=== PATIENT | male | born 1980 | race African-American/Black ===

== ENCOUNTER 2018-02-19 10:04 | Inpatient (IN) | payer OTHER ==
[2018-02-19 10:25] VITALS: BMI 25.1
--- NOTE | 2018-02-19 11:08 | HP ---
CIWA Score - CIWA Score Nausea/Vomitin-No Nausea/No Vomiting Muscle Tremors: 4-Moderate,w/Arms Extend Anxiety: 5 Paroxysmal Sweats: 1-Minimal Palms Moist Orientation: 1-Uncertain about Date Tacttile Disturbances: 0-None Auditory Disturbances: 0-None Visual Disturbances: 2-Mild Sensitivity Headache: 0-None Present Admission ROS [facility] - HPI Chief Complaint: patient here requesting detox from etoh use , reports 1/2 gallon of vodka/day since age 28 , w/d seizures x 3 , most recently 1 yr ago , + tremors if not drinking , starts drinking upon awakening , + blackouts, + falls , most recently + hit head in the past not recently , denies recent injuries to self , does not drive . previous detox 1 mo ago at [facility] pricilla 0.236 utox + CORINNA , + BZO cocaine : occasional use adderall : street use " a few times " benzo : klonopin ( street use ) 2 mg 2 x/day denies other illicits tobacco 1/2 ppd , requesting nrt w/ patch denies allergies pmhx : denies pshx : denies psych : depression , took meds latest 6 mo ago for zoloft , remeron Allergies/Adverse Reactions: Allergies Allergy/AdvReac Type Severity Reaction Status Date / Time No Known Allergies Allergy Verified 02/19/18 10:39 - Ebola screening Have you traveled outside of the country in the last 21 days: No Have you had contact with anyone from an Ebola affected area: No Have you been sick,other than usual withdrawal symptoms: No Do you have a fever: No - Review of Systems Constitutional: See HPI, Malaise, Night Sweats EENT: reports: No Symptoms Reported, Other (glasses) Respiratory: reports: No Symptoms reported Cardiac: reports: No Symptoms Reported GI: reports: No Symptoms Reported : reports: No Symptoms Reported Musculoskeletal: reports: No Symptoms Reported Integumentary: reports: No Symptoms Reported Neuro: reports: See HPI, Tremors Endocrine: reports: No Symptoms Reported Hematology: reports: No Symptoms Reported Psychiatric: reports: Judgement Intact, Orientated x3, Depressed (h/o depression denies SI / HI), other Other Systems: Reviewed and Negative Patient History - Patient Medical History Hx Anemia: No Hx Asthma: No Hx Chronic Obstructive Pulmonary Disease (COPD): No Hx Cancer: No Hx Cardiac Disorders: No Hx Congestive Heart Failure: No Hx Hypertension: No Hx Hypercholesterolemia: No Hx Pacemaker: No HX Cerebrovascular Accident: No Hx Seizures: Yes (etoh related last 1 yr ago.) Hx Dementia: No Hx Diabetes: No Hx Gastrointestinal Disorders: No Hx Liver Disease: No Hx Genitourinary Disorders: No Hx Sexually Transmitted Disorders: No Hx Renal Disease (ESRD): No Hx Thyroid Disease: No Hx Human Immunodeficiency Virus (HIV): No (neg 2014) Hx Hepatitis C: No Hx Depression: Yes Hx Suicide Attempt: No Hx Schizophrenia: No - Patient Surgical History Past Surgical History: No - PPD History Previous Implant?: Yes Documented Results: Negative w/o proof Implanted On Prior [facility] Admission?: Yes Date: 04/14/15 - Smoking Cessation Smoking history: Current every day smoker Have you smoked in the past 12 months: Yes Aproximately how many cigarettes per day: 10 Hx Chewing Tobacco Use: No Initiated information on smoking cessation: No - Substances Abused Alcohol Route: Oral Frequency: Daily Amount used: 1/2 gallon vodka Age of first use: 13 Date of Last Use: 02/19/18 Benzodiazepine (Klonopin) Route: Oral Frequency: 1-2 times per week Amount used: 2mg Age of first use: 37 Date of Last Use: 02/16/18 Family Disease History - Family Disease History Family History: Denies Admission Physical Exam [facility] - Vital Signs Vital Signs: Vital Signs - 24 hr 02/19/18 10:19 Temperature 96.4 F L Pulse Rate 100 H Respiratory 20 Rate Blood Pressure 139/89 - Physical General Appearance: Yes: No Apparent Distress, Nourished, Appropriately Dressed , Moderate Distress, Alcohol on Breath, Tremorous, Anxious HEENTM: Yes: Within Normal Limits, EOMI, Hearing grossly Normal, Normal ENT Inspection, Normocephalic, Normal Voice, CHANA, Pharynx Normal Respiratory: Yes: Chest Non-Tender, Lungs Clear, Normal Breath Sounds, Decreased Breath Sounds, No Respiratory Distress, No Accessory Muscle Use Neck: Yes: Within Normal Limits, No masses,lesions,Nodules, Trachea in good position Cardiology: Yes: Regular Rhythm, Regular Rate, Tachycardia Abdominal: Yes: Within Normal Limits, Normal Bowel Sounds, Non Tender, Flat, Soft Back: Yes: Within Normal Limits, Normal Inspection Musculoskeletal: Yes: Within Normal Limits, full range of Motion, Gait Steady, Pelvis Stable Extremities: Yes: Normal Capillary Refill, Normal Inspection, Normal Range of Motion, Non-Tender, Tremors Neurological: Yes: Alert, Motor Strength 5/5, Normal Mood/Affect, Normal Response, Finger to Nose (difficulty following instructions 2/2 intoxication), Depressed Affect Integumentary: Yes: Within Normal Limits, Normal Color, Dry, Warm, Other ( tattoos) Lymphatic: Yes: Within Normal Limits BHS Breath Alcohol Content Breath Alcohol Content: 0.236 Urine Drug Screen - Results Drug Screen Negative: No Urine Drug Screen Results: CORINNA-Cocaine, BZO-Benzodiazepines
[2018-02-19] MEDS ORDERED: ACETAMINOPHEN 325 MG TABLET (FP) PO PRN (11:15)
[2018-02-19] MEDS ORDERED: MAGNESIUM HYDROX 2400MG/30ML ORAL SUSPENSION 30 ML CUP PO PRN (11:15)
[2018-02-19] MEDS ORDERED: IBUPROFEN 400 MG TABLET (FP) PO PRN (11:15)
[2018-02-19] MEDS ORDERED: MAG HYDROX/AL HYDROX/SIMETH 30 ML UNIT-DOSE CUP PO PRN (11:15)
[2018-02-19] MEDS ORDERED: MAGNESIUM CITRATE 300 ML BOTTLE PO PRN (11:15)
--- NOTE | 2018-02-19 13:59 | EKG ---
Test Reason : Blood Pressure : / mmHG Vent. Rate : 088 BPM Atrial Rate : 088 BPM P-R Int : 164 ms QRS Dur : 078 ms QT Int : 364 ms P-R-T Axes : 047 006 -11 degrees QTc Int : 440 ms NORMAL SINUS RHYTHM NONSPECIFIC T WAVE ABNORMALITY ABNORMAL ECG NO PREVIOUS ECGS AVAILABLE Confirmed by NATALI SEWELL MD ([id number]) on 02/19/2018 1:58:33 PM Referred By: Confirmed By:NATALI SEWELL MD
[2018-02-19] MEDS ORDERED: diazePAM 5 MG TABLET PO ONE (14:10)
--- NOTE | 2018-02-19 14:50 | CONSULT ---
[facility] Psychiatric Consult - Data Date of interview: 02/19/18 Admission source: [facility] Identifying data: Patient is a 38 year old single male, without children, unemployed (denies receiving financial assistance), and is currently homeless. This is one of multiple admissions for patient. Pt. admitted to for alcohol dependence. Substance Abuse History: Smoking Cessation. Smoking history: Current every day smoker. Have you smoked in the past 12 months: Yes. Aproximately how many cigarettes per day: 10. Hx Chewing Tobacco Use: No. Initiated information on smoking cessation: No. - Substances Abused. Alcohol. Route: Oral. Frequency: Daily. Amount used: 1/2 gallon vodka. Age of first use: 13. Date of Last Use: 02/19/18. Benzodiazepine (Klonopin). Route: Oral. Frequency: 1-2 times per week. Amount used: 2mg. Age of first use: 37. Date of Last Use : 02/16/18 Medical History: Seizures (r/t alcohol withdrawal one year ago) Psychiatric History: Patient denies h/o psychiatric hospitalization but as per Dr. Nicolas's note on 04/13/15 patient reported one psychiatric admission on 11/2014 at [facility] which resulted in a diagnosis of bipolar disorder. During his admission in detox in 2014 patient was prescribed Zoloft 200mg + Zyprexa 15mg qhs + Depakote 750mg qhs. Mr. Leonard reports taking zoloft 200mg + Buspar (unknown dose) + Mirtzapine 30mg qhs approximately 6 months ago but stopped taking medication after discontining treatment. Mr. Leonard most recently saw a psychiatrist 3 months ago who prescribed him latuda 40mg. Patient states the medication was effective but again discontinued treatment. Patient denies h/o suicide attempt. Physical/Sexual Abuse/Trauma History: denies. Mental Status Exam - Mental Status Exam Alert and Oriented to: Time, Place, Person Cognitive Function: Good Patient Appearance: Well Groomed Mood: Sad, Withdrawn Affect: Mood Congruent Patient Behavior: Fatigued, Guarded, Cooperative Speech Pattern: Appropriate Voice Loudness: Moderately Soft/Quiet Thought Process: Intact, Goal Oriented Thought Disorder: Not Present Hallucinations: Denies Suicidal Ideation: Denies Homicidal Ideation: Denies Insight/Judgement: Poor Sleep: Poorly Appetite: Fair Muscle strength/Tone: Normal Gait/Station: Normal Psychiatric Findings - Problem List ([place] 1, 2,3) (1) Substance-induced sleep disorder Current Visit: Yes Status: Acute (2) Substance induced mood disorder Current Visit: Yes Status: Acute (3) Mood disorder Current Visit: Yes Status: Chronic (4) Sedative hypnotic or anxiolytic dependence Current Visit: Yes Status: Acute (5) Alcohol dependence Current Visit: Yes Status: Acute Qualifiers: Substance use status: in withdrawal (6) Nicotine dependence Current Visit: Yes Status: Chronic Qualifiers: Nicotine product type: cigarettes - Initial Treatment Plan Initial Treatment Plan: Psychoeducation provided. Detoxification in progress. Will start patient on Latuda 20mg on 02/20/18 +Mirtzapine 15mg qhs tonight (02/19). Benefits and side effects discussed. Verbal consent given.
[2018-02-19 17:34] LABS: URINE APPEARANCE CLEAR; URINE BILIRUBIN NEGATIVE (<2.0 mg/dL); URINE COLOR STRAW; URINE GLUCOSE (UA) NEGATIVE (NEGATIVE); URINE KETONE NEGATIVE (NEGATIVE); URINE LEUK ESTERASE NEGATIVE (NEGATIVE); URINE NITRITE NEGATIVE (NEGATIVE); URINE PROTEIN NEGATIVE (NEGATIVE); URINE UROBILINOGEN NEGATIVE mg/dL (0.2-1.0)
[2018-02-19] MEDS: diazePAM 5 MG TABLET PO SCH ×2 (18:03→23:03)
[2018-02-19] MEDS ORDERED: MELATONIN 5 MG TABLETS PO PRN (22:00)
[2018-02-19] MEDS: MIRTAZAPINE 15 MG TABLET (FP) PO SCH (23:03)
[2018-02-19] MEDS: THIAMINE HCL 100 MG TABLET (FP) PO SCH (23:04)
[2018-02-20] MEDS: diazePAM 5 MG TABLET PO SCH ×3 (06:47→17:42)
[2018-02-20 10:20] LABS: HEMATOCRIT 41.3 % (35.4-49); HEMOGLOBIN 13.8 GM/dL (11.7-16.9); MCH 35.1 pg (25.7-33.7); MCHC 33.4 g/dl (32.0-35.9); MEAN CELL VOLUME 105.2 fl (80-96); MEAN PLT VOLUME 8.3 fl (7.5-11.1); PLATELET COUNT 165 K/MM3 (134-434); RBC 3.92 M/mm3 (4.00-5.60); RDW 13.9 % (11.9-15.9)
[2018-02-20] MEDS: NICOTINE 7 MG/24 HOURS TOPICAL PATCH TD SCH (11:13)
[2018-02-20] MEDS: PRENATAL VITAMINS W/ FOLIC ACID TABLET (FP) PO SCH (11:13)
[2018-02-20 12:37] LABS: ALBUMIN 3.7 g/dl (3.4-5.0); ALK PHOS 54 U/L (45-117); ANION GAP 10 MMOL/L (8-16); BILIRUBIN,TOTAL 0.2 mg/dL (0.2-1); BLOOD UREA NITROGEN 12 mg/dL (7-18); CALCIUM 8.4 mg/dL (8.5-10.1); CHLORIDE 109 mmol/L (98-107); CO2 25 mmol/L (21-32); GLUCOSE,RANDOM 134 mg/dL (74-106); POTASSIUM 3.6 mmol/L (3.5-5.1); SGOT/AST 31 U/L (15-37); SGPT/ALT 34 U/L (13-61); SODIUM 144 mmol/L (136-145); TOT PROT 7.6 g/dl (6.4-8.2)
--- NOTE | 2018-02-20 13:56 | PN ---
[facility] CIWA - CIWA Score Nausea/Vomitin-Mild Nausea/No Vomiting Muscle Tremors: 4-Moderate,w/Arms Extend Anxiety: 4-Mod. Anxious/Guarded Agitation: 4-Moderately Restless Paroxysmal Sweats: 1-Minimal Palms Moist Orientation: 0-Oriented Tacttile Disturbances: 0-None Auditory Disturbances: 0-None Visual Disturbances: 0-None Headache: 1-Very Mild CIWA-Ar Total Score: 15 BHS Progress Note (SOAP) Subjective: tremor sweat restlessness trouble sleep at night Objective: 02/20/18 14:01 Vital Signs Temperature 97.0 F L 02/20/18 13:36 Pulse Rate 53 L 02/20/18 13:36 Respiratory Rate 18 02/20/18 13:36 Blood Pressure 130/71 02/20/18 13:36 O2 Sat by Pulse Oximetry (%) Laboratory Last Values WBC 5.0 K/mm3 (4.0-10.0) 02/20/18 06:00 RBC 3.92 M/mm3 (4.00-5.60) L 02/20/18 06:00 Hgb 13.8 GM/dL (11.7-16.9) 02/20/18 06:00 Hct 41.3 % (35.4-49) 02/20/18 06:00 MCV 105.2 fl (80-96) H 02/20/18 06:00 MCH 35.1 pg (25.7-33.7) H 02/20/18 06:00 MCHC 33.4 g/dl (32.0-35.9) 02/20/18 06:00 RDW 13.9 % (11.9-15.9) 02/20/18 06:00 Plt Count 165 K/MM3 (134-434) 02/20/18 06:00 MPV 8.3 fl (7.5-11.1) D 02/20/18 06:00 Sodium 144 mmol/L (136-145) 02/20/18 06:00 Potassium 3.6 mmol/L (3.5-5.1) 02/20/18 06:00 Chloride 109 mmol/L (98-107) H 02/20/18 06:00 Carbon Dioxide 25 mmol/L (21-32) 02/20/18 06:00 Anion Gap 10 MMOL/L (8-16) 02/20/18 06:00 BUN 12 mg/dL (7-18) 02/20/18 06:00 Creatinine 1.0 mg/dL (0.55-1.3) 02/20/18 06:00 Creat Clearance w eGFR > 60 (>60) 02/20/18 06:00 Random Glucose 134 mg/dL (74-106) H 02/20/18 06:00 Calcium 8.4 mg/dL (8.5-10.1) L 02/20/18 06:00 Total Bilirubin 0.2 mg/dL (0.2-1) 02/20/18 06:00 AST 31 U/L (15-37) 02/20/18 06:00 ALT 34 U/L (13-61) 02/20/18 06:00 Alkaline Phosphatase 54 U/L (45-117) 02/20/18 06:00 Total Protein 7.6 g/dl (6.4-8.2) 02/20/18 06:00 Albumin 3.7 g/dl (3.4-5.0) 02/20/18 06:00 Urine Color Straw 02/19/18 16:12 Urine Appearance Clear 02/19/18 16:12 Urine pH 5.0 (5.0-8.0) 02/19/18 16:12 Ur Specific [place] 1.006 (1.001-1.035) 02/19/18 16:12 Urine Protein Negative (NEGATIVE) 02/19/18 16:12 Urine Glucose (UA) Negative (NEGATIVE) 02/19/18 16:12 Urine Ketones Negative (NEGATIVE) 02/19/18 16:12 Urine Blood Negative (NEGATIVE) 02/19/18 16:12 Urine Nitrite Negative (NEGATIVE) 02/19/18 16:12 Urine Bilirubin Negative (<2.0 mg/dL) 02/19/18 16:12 Urine Urobilinogen Negative mg/dL (0.2-1.0) 02/19/18 16:12 Ur Leukocyte Esterase Negative (NEGATIVE) 02/19/18 16:12 RPR Titer Nonreactive (NONREACTIVE) 02/20/18 06:00 lab noted Assessment: 02/20/18 14:03 withdrawal sx Plan: continue detox
[2018-02-20] MEDS: LURASIDONE HCL 20 MG TABLET PO SCH (17:45)
--- NOTE | 2018-02-20 18:02 | PN ---
[facility] CIWA - CIWA Score Nausea/Vomitin-No Nausea/No Vomiting Muscle Tremors: None Anxiety: 2 Agitation: 2 Paroxysmal Sweats: No Perspiration Orientation: 0-Oriented Tacttile Disturbances: 0-None Auditory Disturbances: 0-None Visual Disturbances: 0-None Headache: 0-None Present (for 02/19/18) CIWA-Ar Total Score: 4
[2018-02-20] MEDS: diazePAM 5 MG TABLET PO PRN (22:24)
[2018-02-20] MEDS: MIRTAZAPINE 15 MG TABLET (FP) PO SCH (22:24)
[2018-02-20] MEDS: THIAMINE HCL 100 MG TABLET (FP) PO SCH (22:24)
[2018-02-21] MEDS: diazePAM 5 MG TABLET PO SCH ×4 (02:14→22:27)
[2018-02-21] MEDS: NICOTINE 7 MG/24 HOURS TOPICAL PATCH TD SCH (10:30)
[2018-02-21] MEDS: PRENATAL VITAMINS W/ FOLIC ACID TABLET (FP) PO SCH (10:30)
--- NOTE | 2018-02-21 11:27 | PN ---
[facility] Progress Note Note: PATIENT PRESENTS WITH MILD ANXIETY. DENIES H/A, CHILLS, N/V/D AND TREMORS. HERE FOR DETOX FROM ETOH. Laboratory Tests 02/19/18 02/20/18 02/20/18 16:12 06:00 06:00 WBC 5.0 RBC 3.92 L Hgb 13.8 Hct 41.3 MCV 105.2 H MCH 35.1 H MCHC 33.4 RDW 13.9 Plt Count 165 MPV 8.3 D Sodium 144 Potassium 3.6 Chloride 109 H Carbon Dioxide 25 Anion Gap 10 BUN 12 Creatinine 1.0 Creat Clearance w eGFR > 60 Random Glucose 134 H Calcium 8.4 L Total Bilirubin 0.2 AST 31 ALT 34 Alkaline Phosphatase 54 Total Protein 7.6 Albumin 3.7 Urine Color Straw Urine Appearance Clear Urine pH 5.0 Ur Specific [place] 1.006 Urine Protein Negative Urine Glucose (UA) Negative Urine Ketones Negative Urine Blood Negative Urine Nitrite Negative Urine Bilirubin Negative Urine Urobilinogen Negative Ur Leukocyte Esterase Negative RPR Titer 02/20/18 06:00 WBC RBC Hgb Hct MCV MCH MCHC RDW Plt Count MPV Sodium Potassium Chloride Carbon Dioxide Anion Gap BUN Creatinine Creat Clearance w eGFR Random Glucose Calcium Total Bilirubin AST ALT Alkaline Phosphatase Total Protein Albumin Urine Color Urine Appearance Urine pH Ur Specific [place] Urine Protein Urine Glucose (UA) Urine Ketones Urine Blood Urine Nitrite Urine Bilirubin Urine Urobilinogen Ur Leukocyte Esterase RPR Titer Nonreactive Vital Signs Temperature 97.9 F 02/21/18 09:17 Pulse Rate 103 H 02/21/18 09:17 Respiratory Rate 18 02/21/18 09:17 Blood Pressure 138/92 02/21/18 09:17 O2 Sat by Pulse Oximetry (%) PE: ALERT AND ORIENTED SKIN WARM AND DRY CAR S1S2 RESP CTA BL A/P: WITHDRAWAL SYNDROME CONTINUE DETOX PER PROTOCOL ENCOURAGED ORAL FLUIDS
[2018-02-21] MEDS: LURASIDONE HCL 20 MG TABLET PO SCH (17:49)
[2018-02-21] MEDS ORDERED: LURASIDONE HCL 20 MG TABLET PO SCH (18:00)
[2018-02-21] MEDS: THIAMINE HCL 100 MG TABLET (FP) PO SCH (22:27)
[2018-02-21] MEDS: MIRTAZAPINE 15 MG TABLET (FP) PO SCH (22:27)
[2018-02-22] MEDS: diazePAM 5 MG TABLET PO PRN (05:11)
[2018-02-22 06:22] VITALS: TEMP 97.7
[2018-02-22] MEDS ORDERED: diazePAM 5 MG TABLET PO SCH (10:00)
[2018-02-22 10:07] VITALS: BP 132/74; PULSE 79
--- NOTE | 2018-02-22 11:06 | DS ---
[facility] Detox Discharge Summary Admission Date: 02/19/18 Discharge Date: 02/22/18 - History Present History: Alcohol Dependence, Sedative Dependence Pertinent Past History: HLD, Depression - Physical Exam Results Vital Signs: Vital Signs Temperature 97.7 F 02/22/18 08:30 Pulse Rate 79 02/22/18 08:30 Respiratory Rate 18 02/22/18 08:30 Blood Pressure 132/74 02/22/18 08:30 O2 Sat by Pulse Oximetry (%) Pertinent Admission Physical Exam Findings: Withdrawal sx Laboratory Last Values WBC 5.0 K/mm3 (4.0-10.0) 02/20/18 06:00 RBC 3.92 M/mm3 (4.00-5.60) L 02/20/18 06:00 Hgb 13.8 GM/dL (11.7-16.9) 02/20/18 06:00 Hct 41.3 % (35.4-49) 02/20/18 06:00 MCV 105.2 fl (80-96) H 02/20/18 06:00 MCH 35.1 pg (25.7-33.7) H 02/20/18 06:00 MCHC 33.4 g/dl (32.0-35.9) 02/20/18 06:00 RDW 13.9 % (11.9-15.9) 02/20/18 06:00 Plt Count 165 K/MM3 (134-434) 02/20/18 06:00 MPV 8.3 fl (7.5-11.1) D 02/20/18 06:00 Sodium 144 mmol/L (136-145) 02/20/18 06:00 Potassium 3.6 mmol/L (3.5-5.1) 02/20/18 06:00 Chloride 109 mmol/L (98-107) H 02/20/18 06:00 Carbon Dioxide 25 mmol/L (21-32) 02/20/18 06:00 Anion Gap 10 MMOL/L (8-16) 02/20/18 06:00 BUN 12 mg/dL (7-18) 02/20/18 06:00 Creatinine 1.0 mg/dL (0.55-1.3) 02/20/18 06:00 Creat Clearance w eGFR > 60 (>60) 02/20/18 06:00 Random Glucose 134 mg/dL (74-106) H 02/20/18 06:00 Calcium 8.4 mg/dL (8.5-10.1) L 02/20/18 06:00 Total Bilirubin 0.2 mg/dL (0.2-1) 02/20/18 06:00 AST 31 U/L (15-37) 02/20/18 06:00 ALT 34 U/L (13-61) 02/20/18 06:00 Alkaline Phosphatase 54 U/L (45-117) 02/20/18 06:00 Total Protein 7.6 g/dl (6.4-8.2) 02/20/18 06:00 Albumin 3.7 g/dl (3.4-5.0) 02/20/18 06:00 Urine Color Straw 02/19/18 16:12 Urine Appearance Clear 02/19/18 16:12 Urine pH 5.0 (5.0-8.0) 02/19/18 16:12 Ur Specific [place] 1.006 (1.001-1.035) 02/19/18 16:12 Urine Protein Negative (NEGATIVE) 02/19/18 16:12 Urine Glucose (UA) Negative (NEGATIVE) 02/19/18 16:12 Urine Ketones Negative (NEGATIVE) 02/19/18 16:12 Urine Blood Negative (NEGATIVE) 02/19/18 16:12 Urine Nitrite Negative (NEGATIVE) 02/19/18 16:12 Urine Bilirubin Negative (<2.0 mg/dL) 02/19/18 16:12 Urine Urobilinogen Negative mg/dL (0.2-1.0) 02/19/18 16:12 Ur Leukocyte Esterase Negative (NEGATIVE) 02/19/18 16:12 RPR Titer Nonreactive (NONREACTIVE) 02/20/18 06:00 Labs noted - Treatment Hospital Course: Detox Protocol Followed, Detoxed Safely, Responded well, Discharged Condition Good - Medication Discharge Medications: Ambulatory Orders Sertraline HCl [Zoloft] 200 mg PO DAILY 04/12/15 Atorvastatin Ca [Lipitor] 40 mg PO HS 02/19/18 Mirtazapine [Remeron -] 30 mg PO HS 02/19/18 - Diagnosis (1) Alcohol dependence with withdrawal Current Visit: Yes Status: Acute Qualifiers: Complication of substance-induced condition: uncomplicated Qualified Code(s ): F10.230 - Alcohol dependence with withdrawal, uncomplicated (2) Sedative hypnotic or anxiolytic dependence Current Visit: Yes Status: Acute (3) Substance induced mood disorder Current Visit: Yes Status: Acute (4) Nicotine dependence Current Visit: Yes Status: Chronic Qualifiers: Nicotine product type: cigarettes Substance use status: uncomplicated Qualified Code(s): F17.210 - Nicotine dependence, cigarettes, uncomplicated (5) HLD (hyperlipidemia) Current Visit: Yes Status: Acute - AMA Did Patient Leave Against Medical Advice: No
== END 2018-02-22 09:52 | disposition home or self-care (01) | DRG 774 ==
LOC: YASAS 10:04 → Y6N 12:35
PROC: HZ2ZZZZ Detoxification Services for Substance Abuse Treatment (ICD-10-PCS; principal; 2018-02-19)
DX: F10.230 Alcohol dependence with withdrawal, uncomplicated (principal); F13.230 Sedative, hypnotic or anxiolytic dependence with withdrawal, uncomplicated; F14.90 Cocaine use, unspecified, uncomplicated; F17.210 Nicotine dependence, cigarettes, uncomplicated; F19.24 Other psychoactive substance dependence with psychoactive substance-induced mood disorder; F19.282 Other psychoactive substance dependence with psychoactive substance-induced sleep disorder; F39 Unspecified mood [affective] disorder; F31.9 Bipolar disorder, unspecified; F32.9 Major depressive disorder, single episode, unspecified; Z86.69 Personal history of other diseases of the nervous system and sense organs
CPT/HCPCS: 36415; 80053; 81003; 85027; 86593; 93005; 93010

== ENCOUNTER 2020-07-19 08:43 | Inpatient (IN) | payer OTHER ==
[2020-07-19 09:27] VITALS: BMI 28.7
[2020-07-19] MEDS ORDERED: MAGNESIUM HYDROX 2400MG/30ML ORAL SUSPENSION 30 ML CUP PO PRN (10:06)
[2020-07-19] MEDS ORDERED: MAGNESIUM CITRATE 300 ML BOTTLE PO PRN (10:06)
[2020-07-19] MEDS ORDERED: BISMUTH SUBSALICYLATE 262 MG/15 ML BTL PO PRN (10:06)
[2020-07-19] MEDS ORDERED: MENTHOL/PHENOL 1 EACH UD MM PRN (10:06)
[2020-07-19] MEDS ORDERED: MAG HYDROX/AL HYDROX/SIMETH 30 ML UNIT-DOSE CUP PO PRN (10:06)
[2020-07-19] MEDS ORDERED: METHOCARBAMOL 500 MG TABLET PO PRN (10:06)
[2020-07-19] MEDS ORDERED: ONDANSETRON *ODT* 4 MG TABLET SL PRN (10:06)
[2020-07-19] MEDS ORDERED: diazePAM 5 MG TABLET PO PRN (10:06)
[2020-07-19] MEDS ORDERED: ACETAMINOPHEN 325 MG TABLET (FP) PO PRN ×2 (10:06)
[2020-07-19] MEDS ORDERED: IBUPROFEN 400 MG TABLET (FP) PO PRN (10:06)
[2020-07-19] MEDS ORDERED: NICOTINE POLACRILEX 2 MG GUM BUC PRN (10:06)
[2020-07-19] MEDS: NICOTINE 14 MG/24 HOURS TOPICAL PATCH TD SCH (11:26)
[2020-07-19] MEDS: diazePAM 5 MG TABLET PO SCH ×3 (11:27→22:45)
[2020-07-19 13:52] LABS: HEMATOCRIT 40.9 % (35.4-49); HEMOGLOBIN 14.3 GM/dL (11.7-16.9); MCH 34.6 pg (25.7-33.7); MEAN CELL VOLUME 98.9 fl (80-96); MEAN PLT VOLUME 8.9 fl (7.5-11.1); PLATELET COUNT 187 K/MM3 (134-434); RBC 4.13 M/mm3 (4.00-5.60); RDW 13.7 % (11.9-15.9); WHITE BLOOD COUNT 9.3 K/mm3 (4.0-10.0)
[2020-07-19 14:24] LABS: POTASSIUM 3.3 mmol/L (3.5-5.1)
[2020-07-19 14:31] LABS: ALBUMIN 3.9 g/dl (3.4-5.0)
[2020-07-19 14:33] LABS: BILIRUBIN,TOTAL 0.5 mg/dL (0.2-1); CALCIUM 8.7 mg/dL (8.5-10.1)
[2020-07-19 14:34] LABS: CREATININE 0.9 mg/dL (0.55-1.3)
[2020-07-19] MEDS: hydrOXYzine PAMOATE 25 MG CAPSULE (FP) PO SCH ×3 (15:01→22:44)
[2020-07-19] MEDS ORDERED: MELATONIN 5 MG TABLETS PO SCH (22:00)
[2020-07-19] MEDS: THIAMINE HCL 100 MG TABLET (FP) PO SCH (22:44)
[2020-07-19] MEDS: ATORVASTATIN CA 40 MG TABLET (FP) PO SCH (22:44)
[2020-07-20] MEDS: diazePAM 5 MG TABLET PO SCH ×4 (06:19→23:09)
[2020-07-20] MEDS: hydrOXYzine PAMOATE 25 MG CAPSULE (FP) PO SCH ×5 (06:19→23:07)
[2020-07-20] MEDS: SERTRALINE HCL 50 MG TABLET (FP) PO SCH (10:55)
[2020-07-20] MEDS: PRENATAL VITAMINS W/ FOLIC ACID TABLET (FP) PO SCH (10:58)
[2020-07-20] MEDS: NICOTINE 14 MG/24 HOURS TOPICAL PATCH TD SCH (10:58)
[2020-07-20] MEDS ORDERED: POTASSIUM CHLORIDE ORAL LIQUID 20 MEQ/15 ML PO ONE (18:09)
[2020-07-20] MEDS: POTASSIUM CHLORIDE ORAL LIQUID 20 MEQ/15 ML PO SCH (23:07)
[2020-07-20] MEDS: THIAMINE HCL 100 MG TABLET (FP) PO SCH (23:07)
[2020-07-20] MEDS: ATORVASTATIN CA 40 MG TABLET (FP) PO SCH (23:09)
[2020-07-21] MEDS: hydrOXYzine PAMOATE 25 MG CAPSULE (FP) PO SCH ×5 (05:24→22:12)
[2020-07-21] MEDS: diazePAM 5 MG TABLET PO SCH ×3 (05:24→22:11)
[2020-07-21 09:51] LABS: POTASSIUM 4.1 mmol/L (3.5-5.1)
[2020-07-21] MEDS: PRENATAL VITAMINS W/ FOLIC ACID TABLET (FP) PO SCH (10:14)
[2020-07-21] MEDS: SERTRALINE HCL 50 MG TABLET (FP) PO SCH (10:14)
[2020-07-21] MEDS: NICOTINE 14 MG/24 HOURS TOPICAL PATCH TD SCH (10:15)
[2020-07-21 10:45] LABS: BLOOD UREA NITROGEN 9.6 mg/dL (7-18)
[2020-07-21 10:48] LABS: CALCIUM 9.5 mg/dL (8.5-10.1)
[2020-07-21] MEDS: POTASSIUM CHLORIDE ORAL LIQUID 20 MEQ/15 ML PO SCH ×2 (13:08→22:11)
[2020-07-21] MEDS: ATORVASTATIN CA 40 MG TABLET (FP) PO SCH (22:11)
[2020-07-21] MEDS: THIAMINE HCL 100 MG TABLET (FP) PO SCH (22:11)
[2020-07-21] MEDS: MELATONIN 5 MG TABLETS PO PRN (22:12)
[2020-07-22] MEDS: hydrOXYzine PAMOATE 25 MG CAPSULE (FP) PO SCH ×5 (05:15→21:56)
[2020-07-22] MEDS: diazePAM 5 MG TABLET PO SCH ×2 (05:16→17:43)
[2020-07-22] MEDS: SERTRALINE HCL 50 MG TABLET (FP) PO SCH (10:08)
[2020-07-22] MEDS: NICOTINE 14 MG/24 HOURS TOPICAL PATCH TD SCH (10:08)
[2020-07-22] MEDS: PRENATAL VITAMINS W/ FOLIC ACID TABLET (FP) PO SCH (10:08)
[2020-07-22] MEDS: ATORVASTATIN CA 40 MG TABLET (FP) PO SCH (21:56)
[2020-07-22] MEDS: MELATONIN 5 MG TABLETS PO PRN (21:56)
[2020-07-22] MEDS: THIAMINE HCL 100 MG TABLET (FP) PO SCH (21:56)
[2020-07-23] MEDS: hydrOXYzine PAMOATE 25 MG CAPSULE (FP) PO SCH (05:13)
[2020-07-23] MEDS ORDERED: diazePAM 5 MG TABLET PO ONE (06:00)
[2020-07-23 09:24] VITALS: BP 140/95; PULSE 88; TEMP 97
== END 2020-07-23 09:53 | disposition home or self-care (01) | DRG 774 ==
LOC: YASAS 08:43 → Y6N 10:42
PROVIDERS: ADMIT Allergy & Immunology; ATTEND Allergy & Immunology
PROC: HZ2ZZZZ Detoxification Services for Substance Abuse Treatment (ICD-10-PCS; principal; 2020-07-19)
DX: F10.230 Alcohol dependence with withdrawal, uncomplicated (principal); F14.20 Cocaine dependence, uncomplicated; F17.210 Nicotine dependence, cigarettes, uncomplicated; F39 Unspecified mood [affective] disorder; F19.282 Other psychoactive substance dependence with psychoactive substance-induced sleep disorder; F19.24 Other psychoactive substance dependence with psychoactive substance-induced mood disorder; R56.9 Unspecified convulsions; E78.5 Hyperlipidemia, unspecified; E78.00 Pure hypercholesterolemia, unspecified
CPT/HCPCS: 36415; 80048; 80053; 82947; 82962; 83036; 85027; 86780; C9803; U0003

== ENCOUNTER 2021-06-07 08:56 | Inpatient (IN) | payer OTHER ==
[2021-06-07 09:20] VITALS: BMI 23.1
[2021-06-07] MEDS ORDERED: MENTHOL/PHENOL 1 EACH UD MM PRN (09:31)
[2021-06-07] MEDS ORDERED: ONDANSETRON *ODT* 4 MG TABLET SL PRN (09:31)
[2021-06-07] MEDS ORDERED: MAG HYDROX/AL HYDROX/SIMETH 30 ML UNIT-DOSE CUP PO PRN (09:31)
[2021-06-07] MEDS ORDERED: IBUPROFEN 400 MG TABLET (FP) PO PRN (09:31)
[2021-06-07] MEDS ORDERED: MAGNESIUM HYDROX 2400MG/30ML ORAL SUSPENSION 30 ML CUP PO PRN (09:31)
[2021-06-07] MEDS ORDERED: ACETAMINOPHEN 325 MG TABLET (FP) PO PRN ×2 (09:31)
[2021-06-07] MEDS ORDERED: BISMUTH SUBSALICYLATE 524 MG/30 ML PO PRN (09:31)
[2021-06-07] MEDS ORDERED: MAGNESIUM CITRATE 300 ML BOTTLE PO PRN (09:31)
[2021-06-07] MEDS ORDERED: hydrOXYzine PAMOATE 25 MG CAPSULE (FP) PO ONE (11:41)
[2021-06-07] MEDS: hydrOXYzine PAMOATE 25 MG CAPSULE (FP) PO SCH ×4 (11:43→22:20)
[2021-06-07] MEDS: PRENATAL VITAMINS W/ FOLIC ACID TABLET (FP) PO SCH (11:44)
[2021-06-07] MEDS: diazePAM 5 MG TABLET PO SCH ×3 (11:46→22:20)
[2021-06-07] MEDS: NICOTINE 7 MG/24 HOURS TOPICAL PATCH TD SCH (12:32)
[2021-06-07 14:55] LABS: HEMATOCRIT 44.3 % (35.4-49); HEMOGLOBIN 14.6 GM/dL (11.7-16.9); MCH 34.6 pg (25.7-33.7); MCHC 32.9 g/dl (32.0-35.9); MEAN PLT VOLUME 8.5 fl (7.5-11.1); PLATELET COUNT 138 10^3/uL (134-434); RBC 4.22 M/mm3 (4.00-5.60); WHITE BLOOD COUNT 4.7 K/mm3 (4.0-10.0)
[2021-06-07 15:04] LABS: CALCIUM 8.8 mg/dL (8.5-10.1)
[2021-06-07 15:05] LABS: ALBUMIN 3.7 g/dl (3.4-5.0); BLOOD UREA NITROGEN 6.5 mg/dL (7-18)
[2021-06-07 15:08] LABS: CREATININE 0.8 mg/dL (0.55-1.3)
[2021-06-07 15:10] LABS: BILIRUBIN,TOTAL 0.6 mg/dL (0.2-1); TOT PROT 7.8 g/dl (6.4-8.2)
[2021-06-07] MEDS: MELATONIN 5 MG TABLETS PO SCH (22:20)
[2021-06-07] MEDS: ATORVASTATIN CA 40 MG TABLET (FP) PO SCH (22:20)
[2021-06-07] MEDS: THIAMINE HCL 100 MG TABLET (FP) PO SCH (22:20)
[2021-06-08] MEDS: diazePAM 5 MG TABLET PO SCH ×4 (05:53→22:21)
[2021-06-08] MEDS: hydrOXYzine PAMOATE 25 MG CAPSULE (FP) PO SCH ×5 (05:54→22:20)
[2021-06-08] MEDS ORDERED: POTASSIUM CHLORIDE ORAL LIQUID 20 MEQ/15 ML PO ONE ×2 (10:00→14:30)
[2021-06-08] MEDS: METHOCARBAMOL 500 MG TABLET PO PRN (10:17)
[2021-06-08] MEDS: PRENATAL VITAMINS W/ FOLIC ACID TABLET (FP) PO SCH (10:17)
[2021-06-08] MEDS: amLODIPine BESYLATE 5 MG TABLET (FP) PO SCH (10:17)
[2021-06-08] MEDS: NICOTINE 7 MG/24 HOURS TOPICAL PATCH TD SCH (10:19)
[2021-06-08] MEDS: ATORVASTATIN CA 40 MG TABLET (FP) PO SCH (22:20)
[2021-06-08] MEDS: MELATONIN 5 MG TABLETS PO SCH (22:20)
[2021-06-08] MEDS: THIAMINE HCL 100 MG TABLET (FP) PO SCH (22:20)
[2021-06-09] MEDS: diazePAM 5 MG TABLET PO SCH ×3 (05:48→22:20)
[2021-06-09] MEDS: hydrOXYzine PAMOATE 25 MG CAPSULE (FP) PO SCH ×5 (05:48→22:20)
[2021-06-09] MEDS: METHOCARBAMOL 500 MG TABLET PO PRN (10:19)
[2021-06-09] MEDS: diazePAM 5 MG TABLET PO PRN (10:19)
[2021-06-09] MEDS: amLODIPine BESYLATE 5 MG TABLET (FP) PO SCH (10:21)
[2021-06-09] MEDS: NICOTINE 7 MG/24 HOURS TOPICAL PATCH TD SCH (10:21)
[2021-06-09] MEDS: PRENATAL VITAMINS W/ FOLIC ACID TABLET (FP) PO SCH (10:21)
[2021-06-09] MEDS: ATORVASTATIN CA 40 MG TABLET (FP) PO SCH (22:20)
[2021-06-09] MEDS: THIAMINE HCL 100 MG TABLET (FP) PO SCH (22:20)
[2021-06-09] MEDS: MELATONIN 5 MG TABLETS PO SCH (22:21)
[2021-06-09] MEDS: NICOTINE 10 MG CARTRIDGE (INHALER) IH PRN (22:35)
[2021-06-10] MEDS: hydrOXYzine PAMOATE 25 MG CAPSULE (FP) PO SCH ×5 (05:58→22:24)
[2021-06-10] MEDS: diazePAM 5 MG TABLET PO SCH ×2 (05:58→18:42)
[2021-06-10] MEDS: PRENATAL VITAMINS W/ FOLIC ACID TABLET (FP) PO SCH (10:45)
[2021-06-10] MEDS: amLODIPine BESYLATE 5 MG TABLET (FP) PO SCH (10:45)
[2021-06-10] MEDS: diazePAM 5 MG TABLET PO PRN (10:48)
[2021-06-10] MEDS: NICOTINE 10 MG CARTRIDGE (INHALER) IH PRN (11:08)
[2021-06-10] MEDS: NICOTINE 7 MG/24 HOURS TOPICAL PATCH TD SCH (11:11)
[2021-06-10] MEDS: MELATONIN 5 MG TABLETS PO SCH (22:24)
[2021-06-10] MEDS: METHOCARBAMOL 500 MG TABLET PO PRN (22:24)
[2021-06-10] MEDS: ATORVASTATIN CA 40 MG TABLET (FP) PO SCH (22:24)
[2021-06-10] MEDS: THIAMINE HCL 100 MG TABLET (FP) PO SCH (22:24)
[2021-06-11 00:52] VITALS: TEMP 96.8
[2021-06-11] MEDS: hydrOXYzine PAMOATE 25 MG CAPSULE (FP) PO SCH (05:37)
[2021-06-11] MEDS ORDERED: diazePAM 5 MG TABLET PO ONE (06:00)
[2021-06-11 07:46] VITALS: BP 133/91; PULSE 76
== END 2021-06-11 09:01 | disposition home or self-care (01) | DRG 774 ==
LOC: YASAS 08:56 → Y6N 11:18 → UNDOADMIN 11:18 → Y6N 11:55
PROVIDERS: ADMIT Allergy & Immunology; ATTEND Allergy & Immunology
PROC: HZ2ZZZZ Detoxification Services for Substance Abuse Treatment (ICD-10-PCS; principal; 2021-06-07)
DX: F10.230 Alcohol dependence with withdrawal, uncomplicated (principal); F14.20 Cocaine dependence, uncomplicated; F17.210 Nicotine dependence, cigarettes, uncomplicated; F31.9 Bipolar disorder, unspecified; F39 Unspecified mood [affective] disorder; F41.9 Anxiety disorder, unspecified; F34.1 Dysthymic disorder; E78.00 Pure hypercholesterolemia, unspecified; I10 Essential (primary) hypertension; Z86.69 Personal history of other diseases of the nervous system and sense organs; Z56.0 Unemployment, unspecified
CPT/HCPCS: 36415; 80053; 84132; 85027; 86780; C9803-CS; U0003; U0005

== ENCOUNTER 2021-06-26 17:23 | Inpatient (IN) | payer OTHER ==
[2021-06-26 17:53] VITALS: BMI 24.3
[2021-06-26] MEDS ORDERED: ONDANSETRON *ODT* 4 MG TABLET SL PRN (18:33)
[2021-06-26] MEDS ORDERED: BISMUTH SUBSALICYLATE 524 MG/30 ML PO PRN (18:33)
[2021-06-26] MEDS ORDERED: IBUPROFEN 400 MG TABLET (FP) PO PRN (18:33)
[2021-06-26] MEDS ORDERED: MAG HYDROX/AL HYDROX/SIMETH 30 ML UNIT-DOSE CUP PO PRN (18:33)
[2021-06-26] MEDS ORDERED: NICOTINE POLACRILEX 2 MG GUM BUC PRN (18:33)
[2021-06-26] MEDS ORDERED: MAGNESIUM HYDROX 2400MG/30ML ORAL SUSPENSION 30 ML CUP PO PRN (18:33)
[2021-06-26] MEDS ORDERED: MAGNESIUM CITRATE 300 ML BOTTLE PO PRN (18:33)
[2021-06-26] MEDS ORDERED: ACETAMINOPHEN 325 MG TABLET (FP) PO PRN ×2 (18:33)
[2021-06-26] MEDS ORDERED: METHOCARBAMOL 500 MG TABLET PO PRN (18:33)
[2021-06-26] MEDS ORDERED: MENTHOL/PHENOL 1 EACH UD MM PRN (18:33)
[2021-06-26] MEDS ORDERED: diazePAM 5 MG TABLET PO ONE (18:34)
[2021-06-26] MEDS: THIAMINE HCL 100 MG TABLET (FP) PO SCH (23:49)
[2021-06-26] MEDS: hydrOXYzine PAMOATE 25 MG CAPSULE (FP) PO PRN (23:49)
[2021-06-26] MEDS: MELATONIN 5 MG TABLETS PO PRN (23:50)
[2021-06-26] MEDS: diazePAM 5 MG TABLET PO SCH (23:50)
[2021-06-27] MEDS: diazePAM 5 MG TABLET PO SCH ×4 (05:23→22:16)
[2021-06-27] MEDS: PRENATAL VITAMINS W/ FOLIC ACID TABLET (FP) PO SCH (10:24)
[2021-06-27] MEDS: amLODIPine BESYLATE 5 MG TABLET (FP) PO SCH (10:25)
[2021-06-27] MEDS: MELATONIN 5 MG TABLETS PO PRN (22:16)
[2021-06-27] MEDS: THIAMINE HCL 100 MG TABLET (FP) PO SCH (22:16)
[2021-06-27] MEDS: ATORVASTATIN CA 40 MG TABLET (FP) PO SCH (22:16)
[2021-06-28] MEDS: diazePAM 5 MG TABLET PO SCH ×3 (05:19→22:12)
[2021-06-28] MEDS: PRENATAL VITAMINS W/ FOLIC ACID TABLET (FP) PO SCH (10:17)
[2021-06-28] MEDS: amLODIPine BESYLATE 5 MG TABLET (FP) PO SCH (10:17)
[2021-06-28] MEDS: hydrOXYzine PAMOATE 25 MG CAPSULE (FP) PO PRN (10:18)
[2021-06-28] MEDS: diazePAM 5 MG TABLET PO PRN (11:33)
[2021-06-28 15:09] LABS: HEMATOCRIT 39.9 % (35.4-49); HEMOGLOBIN 13.7 GM/dL (11.7-16.9); MCHC 34.4 g/dl (32.0-35.9); MEAN CELL VOLUME 104.6 fl (80-96); MEAN PLT VOLUME 8.5 fl (7.5-11.1); PLATELET COUNT 146 10^3/uL (134-434); RBC 3.82 M/mm3 (4.00-5.60); RDW 13.2 % (11.9-15.9); WHITE BLOOD COUNT 4.3 K/mm3 (4.0-10.0)
[2021-06-28 15:17] LABS: ALBUMIN 3.8 g/dl (3.4-5.0); BLOOD UREA NITROGEN 11.2 mg/dL (7-18)
[2021-06-28 15:20] LABS: CREATININE 0.8 mg/dL (0.55-1.3)
[2021-06-28 15:22] LABS: BILIRUBIN,TOTAL 0.6 mg/dL (0.2-1); TOT PROT 7.4 g/dl (6.4-8.2)
[2021-06-28] MEDS: MELATONIN 5 MG TABLETS PO PRN (22:13)
[2021-06-28] MEDS: ATORVASTATIN CA 40 MG TABLET (FP) PO SCH (22:13)
[2021-06-28] MEDS: THIAMINE HCL 100 MG TABLET (FP) PO SCH (22:13)
[2021-06-29] MEDS: diazePAM 5 MG TABLET PO SCH ×2 (05:06→17:30)
[2021-06-29] MEDS: amLODIPine BESYLATE 5 MG TABLET (FP) PO SCH (10:20)
[2021-06-29] MEDS: hydrOXYzine PAMOATE 25 MG CAPSULE (FP) PO PRN ×3 (10:21→22:06)
[2021-06-29] MEDS: PRENATAL VITAMINS W/ FOLIC ACID TABLET (FP) PO SCH (10:21)
[2021-06-29] MEDS: diazePAM 5 MG TABLET PO PRN (12:31)
[2021-06-29] MEDS: ATORVASTATIN CA 40 MG TABLET (FP) PO SCH (22:06)
[2021-06-29] MEDS: MELATONIN 5 MG TABLETS PO PRN (22:06)
[2021-06-29] MEDS: THIAMINE HCL 100 MG TABLET (FP) PO SCH (22:06)
[2021-06-30] MEDS: hydrOXYzine PAMOATE 25 MG CAPSULE (FP) PO PRN (05:07)
[2021-06-30] MEDS ORDERED: diazePAM 5 MG TABLET PO ONE (06:00)
[2021-06-30 06:18] VITALS: BP 123/85; PULSE 78; TEMP 97.1
== END 2021-06-30 09:01 | disposition home or self-care (01) | DRG 774 ==
LOC: YASAS 17:23 → Y3N 22:40
PROVIDERS: ADMIT Allergy & Immunology; ATTEND Allergy & Immunology
PROC: HZ2ZZZZ Detoxification Services for Substance Abuse Treatment (ICD-10-PCS; principal; 2021-06-26)
DX: F10.230 Alcohol dependence with withdrawal, uncomplicated (principal); F14.20 Cocaine dependence, uncomplicated; F17.210 Nicotine dependence, cigarettes, uncomplicated; F19.24 Other psychoactive substance dependence with psychoactive substance-induced mood disorder; E78.5 Hyperlipidemia, unspecified; I10 Essential (primary) hypertension; Z86.69 Personal history of other diseases of the nervous system and sense organs; Z56.0 Unemployment, unspecified; Z91.19 Patient's noncompliance with other medical treatment and regimen
CPT/HCPCS: 36415; 80053; 85027; 86780; C9803; U0003; U0005

== ENCOUNTER 2021-12-12 18:46 | Inpatient (IN) | payer OTHER ==
[2021-12-12 20:02] VITALS: BMI 21.5
[2021-12-12] MEDS ORDERED: MAG HYDROX/AL HYDROX/SIMETH 30 ML UNIT-DOSE CUP PO PRN (20:39)
[2021-12-12] MEDS ORDERED: BISMUTH SUBSALICYLATE 524 MG/30 ML PO PRN (20:39)
[2021-12-12] MEDS ORDERED: BENZOCAINE/MENTHOL (CHLORASEPTIC ) LOZENGE MM PRN (20:39)
[2021-12-12] MEDS ORDERED: IBUPROFEN 400 MG TABLET (FP) PO PRN (20:39)
[2021-12-12] MEDS ORDERED: LOPERAMIDE HCL 2 MG CAPSULE PO PRN (20:39)
[2021-12-12] MEDS ORDERED: MAGNESIUM CITRATE 300 ML BOTTLE PO PRN (20:39)
[2021-12-12] MEDS ORDERED: NICOTINE 10 MG CARTRIDGE (INHALER) IH PRN (20:39)
[2021-12-12] MEDS ORDERED: ACETAMINOPHEN 325 MG TABLET (FP) PO PRN ×2 (20:39)
[2021-12-12] MEDS ORDERED: ONDANSETRON *ODT* 4 MG TABLET SL PRN (20:39)
[2021-12-12] MEDS ORDERED: DICYCLOMINE HCL 10 MG CAPSULE PO PRN (20:39)
[2021-12-12] MEDS ORDERED: chlordiazePOXIDE HCL 25 MG CAPSULE PO PRN (20:39)
[2021-12-12] MEDS ORDERED: IBUPROFEN 600 MG TABLET (FP) PO PRN (20:39)
[2021-12-12] MEDS ORDERED: MAGNESIUM HYDROX 2400MG/30ML ORAL SUSPENSION 30 ML CUP PO PRN (20:39)
[2021-12-12] MEDS: THIAMINE HCL 100 MG TABLET (FP) PO SCH (22:24)
[2021-12-12] MEDS: MELATONIN 5 MG TABLETS PO SCH (22:25)
[2021-12-12] MEDS: chlordiazePOXIDE HCL 25 MG CAPSULE PO SCH (22:25)
[2021-12-13] MEDS: chlordiazePOXIDE HCL 25 MG CAPSULE PO SCH ×4 (05:38→22:16)
[2021-12-13] MEDS: hydrOXYzine PAMOATE 25 MG CAPSULE (FP) PO PRN (10:39)
[2021-12-13] MEDS: NICOTINE 14 MG/24 HOURS TOPICAL PATCH TD SCH (10:39)
[2021-12-13] MEDS: PRENATAL VITAMINS W/ FOLIC ACID TABLET (FP) PO SCH (10:40)
[2021-12-13] MEDS: amLODIPine BESYLATE 5 MG TABLET (FP) PO SCH (10:43)
[2021-12-13 11:15] LABS: HEMOGLOBIN 11.7 GM/dL (11.7-16.9); MCH 36.6 pg (25.7-33.7); MCHC 34.4 g/dl (32.0-35.9); MEAN CELL VOLUME 106.4 fl (80-96); MEAN PLT VOLUME 7.6 fl (7.5-11.1); PLATELET COUNT 142 10^3/uL (134-434); RDW 13.5 % (11.9-15.9); WHITE BLOOD COUNT 2.5 K/mm3 (4.0-10.0)
[2021-12-13 11:54] LABS: BLOOD UREA NITROGEN 9.6 mg/dL (7-18); CALCIUM 8.6 mg/dL (8.5-10.1)
[2021-12-13 11:57] LABS: CREATININE 0.7 mg/dL (0.55-1.3)
[2021-12-13 11:59] LABS: BILIRUBIN,TOTAL 0.5 mg/dL (0.2-1); TOT PROT 6.3 g/dl (6.4-8.2)
[2021-12-13] MEDS: ATORVASTATIN CA 40 MG TABLET (FP) PO SCH (22:16)
[2021-12-13] MEDS: THIAMINE HCL 100 MG TABLET (FP) PO SCH (22:16)
[2021-12-13] MEDS: MELATONIN 5 MG TABLETS PO SCH (22:16)
[2021-12-14] MEDS: chlordiazePOXIDE HCL 25 MG CAPSULE PO SCH ×4 (05:50→22:32)
[2021-12-14] MEDS: PRENATAL VITAMINS W/ FOLIC ACID TABLET (FP) PO SCH (10:15)
[2021-12-14] MEDS: amLODIPine BESYLATE 5 MG TABLET (FP) PO SCH (10:15)
[2021-12-14] MEDS: NICOTINE 14 MG/24 HOURS TOPICAL PATCH TD SCH (10:15)
[2021-12-14] MEDS: hydrOXYzine PAMOATE 25 MG CAPSULE (FP) PO PRN (22:32)
[2021-12-14] MEDS: MELATONIN 5 MG TABLETS PO SCH (22:32)
[2021-12-14] MEDS: ATORVASTATIN CA 40 MG TABLET (FP) PO SCH (22:32)
[2021-12-14] MEDS: METHOCARBAMOL 500 MG TABLET PO PRN (22:32)
[2021-12-14] MEDS: THIAMINE HCL 100 MG TABLET (FP) PO SCH (22:32)
[2021-12-15] MEDS ORDERED: chlordiazePOXIDE HCL 10 MG CAPSULE PO PRN
[2021-12-15] MEDS: chlordiazePOXIDE HCL 10 MG CAPSULE PO SCH ×4 (05:49→22:05)
[2021-12-15] MEDS: NICOTINE 14 MG/24 HOURS TOPICAL PATCH TD SCH (10:25)
[2021-12-15] MEDS: PRENATAL VITAMINS W/ FOLIC ACID TABLET (FP) PO SCH (10:25)
[2021-12-15] MEDS: amLODIPine BESYLATE 5 MG TABLET (FP) PO SCH (10:25)
[2021-12-15] MEDS ORDERED: amLODIPine BESYLATE 5 MG TABLET (FP) PO ONE (11:24)
[2021-12-15] MEDS: THIAMINE HCL 100 MG TABLET (FP) PO SCH (22:04)
[2021-12-15] MEDS: MELATONIN 5 MG TABLETS PO SCH (22:04)
[2021-12-15] MEDS: ATORVASTATIN CA 40 MG TABLET (FP) PO SCH (22:05)
[2021-12-16] MEDS: chlordiazePOXIDE HCL 10 MG CAPSULE PO SCH ×2 (05:39→17:50)
[2021-12-16] MEDS: PRENATAL VITAMINS W/ FOLIC ACID TABLET (FP) PO SCH (10:16)
[2021-12-16] MEDS: hydrOXYzine PAMOATE 25 MG CAPSULE (FP) PO PRN (10:16)
[2021-12-16] MEDS: METHOCARBAMOL 500 MG TABLET PO PRN (10:16)
[2021-12-16] MEDS: amLODIPine BESYLATE 10 MG TABLET (FP) PO SCH (10:17)
[2021-12-16] MEDS: NICOTINE 14 MG/24 HOURS TOPICAL PATCH TD SCH (11:10)
[2021-12-16] MEDS: THIAMINE HCL 100 MG TABLET (FP) PO SCH (22:34)
[2021-12-16] MEDS: ATORVASTATIN CA 40 MG TABLET (FP) PO SCH (22:34)
[2021-12-16] MEDS: MELATONIN 5 MG TABLETS PO SCH (22:34)
[2021-12-17] MEDS ORDERED: chlordiazePOXIDE HCL 10 MG CAPSULE PO ONE (05:00)
[2021-12-17] MEDS: NICOTINE 14 MG/24 HOURS TOPICAL PATCH TD SCH (09:11)
[2021-12-17] MEDS: amLODIPine BESYLATE 10 MG TABLET (FP) PO SCH (09:11)
[2021-12-17] MEDS: PRENATAL VITAMINS W/ FOLIC ACID TABLET (FP) PO SCH (09:12)
[2021-12-17 13:03] VITALS: BP 117/75; PULSE 92; TEMP 97.5
== END 2021-12-17 09:33 | disposition home or self-care (01) | DRG 775 ==
LOC: YASAS 18:46 → Y3N 20:58
PROVIDERS: ADMIT Allergy & Immunology; ATTEND Surgery
PROC: HZ2ZZZZ Detoxification Services for Substance Abuse Treatment (ICD-10-PCS; principal; 2021-12-12)
DX: F10.230 Alcohol dependence with withdrawal, uncomplicated (principal); F17.210 Nicotine dependence, cigarettes, uncomplicated; F34.1 Dysthymic disorder; F41.9 Anxiety disorder, unspecified; E78.5 Hyperlipidemia, unspecified; I10 Essential (primary) hypertension; Z86.69 Personal history of other diseases of the nervous system and sense organs; Z28.310 Unvaccinated for COVID-19
CPT/HCPCS: 36415; 80053; 85027; 86780; 93005; 93010; C9803-CS; U0003; U0005

== ENCOUNTER 2022-07-07 14:33 | Inpatient (IN) | payer OTHER ==
[2022-07-07 17:04] VITALS: BMI 22.6
[2022-07-07] MEDS ORDERED: NALOXONE HCL (KLOXXADO) 8 MG SPRAY NS PRN (17:28)
[2022-07-07] MEDS ORDERED: ACETAMINOPHEN 325 MG TABLET (FP) PO PRN ×2 (17:28)
[2022-07-07] MEDS ORDERED: MAGNESIUM HYDROX 2400MG/30ML ORAL SUSPENSION 30 ML CUP PO PRN (17:28)
[2022-07-07] MEDS ORDERED: MAG HYDROX/AL HYDROX/SIMETH 30 ML UNIT-DOSE CUP PO PRN (17:28)
[2022-07-07] MEDS ORDERED: ONDANSETRON *ODT* 4 MG TABLET SL PRN (17:28)
[2022-07-07] MEDS ORDERED: BENZOCAINE/MENTHOL (CHLORASEPTIC ) LOZENGE MM PRN (17:28)
[2022-07-07] MEDS ORDERED: POLYETHYLENE GLYCOL (HEALTHYLAX) 3350 17 GM PACKET PO PRN (17:28)
[2022-07-07] MEDS ORDERED: LOPERAMIDE HCL 2 MG CAPSULE PO PRN (17:28)
[2022-07-07] MEDS ORDERED: BISMUTH SUBSALICYLATE 524 MG/30 ML PO PRN (17:28)
[2022-07-07] MEDS ORDERED: IBUPROFEN 400 MG TABLET (FP) PO PRN (17:28)
[2022-07-07] MEDS ORDERED: chlordiazePOXIDE HCL 25 MG CAPSULE PO PRN (17:28)
[2022-07-07] MEDS ORDERED: DICYCLOMINE HCL 10 MG CAPSULE PO PRN (17:28)
[2022-07-07] MEDS ORDERED: IBUPROFEN 600 MG TABLET (FP) PO PRN (17:28)
[2022-07-07] MEDS ORDERED: NICOTINE 10 MG CARTRIDGE (INHALER) IH PRN (17:28)
[2022-07-07] MEDS: MELATONIN 5 MG TABLETS PO SCH (23:00)
[2022-07-07] MEDS: THIAMINE HCL 100 MG TABLET (FP) PO SCH (23:00)
[2022-07-07] MEDS: chlordiazePOXIDE HCL 25 MG CAPSULE PO SCH (23:00)
[2022-07-08] MEDS: chlordiazePOXIDE HCL 25 MG CAPSULE PO SCH ×4 (06:07→22:12)
[2022-07-08] MEDS: PRENATAL VITAMINS W/ FOLIC ACID TABLET (FP) PO SCH (10:31)
[2022-07-08] MEDS: METHOCARBAMOL 500 MG TABLET PO PRN (21:20)
[2022-07-08] MEDS: THIAMINE HCL 100 MG TABLET (FP) PO SCH (21:22)
[2022-07-08] MEDS: MELATONIN 5 MG TABLETS PO SCH (21:22)
[2022-07-09] MEDS: chlordiazePOXIDE HCL 25 MG CAPSULE PO SCH ×4 (05:46→21:59)
[2022-07-09] MEDS: PRENATAL VITAMINS W/ FOLIC ACID TABLET (FP) PO SCH (10:36)
[2022-07-09] MEDS: amLODIPine BESYLATE 10 MG TABLET (FP) PO SCH (12:25)
[2022-07-09 14:05] LABS: HEMATOCRIT 38.4 % (35.4-49); MCH 35.6 pg (25.7-33.7); MCHC 33.7 g/dl (32.0-35.9); MEAN CELL VOLUME 105.6 fl (80-96); PLATELET COUNT 182 10^3/uL (134-434); RBC 3.63 M/mm3 (4.00-5.60); RDW 14.6 % (11.9-15.9); WHITE BLOOD COUNT 5.1 K/mm3 (4.0-10.0)
[2022-07-09 15:27] LABS: ALBUMIN 2.9 g/dl (3.4-5.0)
[2022-07-09 15:30] LABS: BLOOD UREA NITROGEN 11.4 mg/dL (7-18); CALCIUM 8.8 mg/dL (8.5-10.1)
[2022-07-09 15:31] LABS: CREATININE 0.7 mg/dL (0.55-1.3)
[2022-07-09 15:33] LABS: BILIRUBIN,TOTAL 0.5 mg/dL (0.2-1)
[2022-07-09 15:38] LABS: TOT PROT 6.1 g/dl (6.4-8.2)
[2022-07-09] MEDS: MELATONIN 5 MG TABLETS PO SCH (21:58)
[2022-07-09] MEDS: THIAMINE HCL 100 MG TABLET (FP) PO SCH (21:59)
[2022-07-09] MEDS: METHOCARBAMOL 500 MG TABLET PO PRN (21:59)
[2022-07-09] MEDS: ATORVASTATIN CA 40 MG TABLET (FP) PO SCH (21:59)
[2022-07-10] MEDS ORDERED: chlordiazePOXIDE HCL 10 MG CAPSULE PO PRN
[2022-07-10] MEDS: chlordiazePOXIDE HCL 10 MG CAPSULE PO SCH ×4 (05:55→22:24)
[2022-07-10] MEDS: PRENATAL VITAMINS W/ FOLIC ACID TABLET (FP) PO SCH (10:23)
[2022-07-10] MEDS: amLODIPine BESYLATE 10 MG TABLET (FP) PO SCH (10:23)
[2022-07-10] MEDS: hydrOXYzine PAMOATE 25 MG CAPSULE (FP) PO PRN ×2 (10:28→17:34)
[2022-07-10] MEDS ORDERED: GABAPENTIN 100 MG CAPSULE PO SCH (14:00)
[2022-07-10] MEDS: METHOCARBAMOL 500 MG TABLET PO PRN (22:23)
[2022-07-10] MEDS: MELATONIN 5 MG TABLETS PO SCH (22:23)
[2022-07-10] MEDS: THIAMINE HCL 100 MG TABLET (FP) PO SCH (22:23)
[2022-07-10] MEDS: ATORVASTATIN CA 40 MG TABLET (FP) PO SCH (22:23)
[2022-07-11] MEDS: chlordiazePOXIDE HCL 10 MG CAPSULE PO SCH ×2 (05:41→17:37)
[2022-07-11] MEDS: hydrOXYzine PAMOATE 25 MG CAPSULE (FP) PO PRN ×2 (05:42→15:09)
[2022-07-11] MEDS: PRENATAL VITAMINS W/ FOLIC ACID TABLET (FP) PO SCH (10:33)
[2022-07-11] MEDS: amLODIPine BESYLATE 10 MG TABLET (FP) PO SCH (10:33)
[2022-07-11] MEDS: MELATONIN 5 MG TABLETS PO SCH (22:20)
[2022-07-11] MEDS: THIAMINE HCL 100 MG TABLET (FP) PO SCH (22:20)
[2022-07-11] MEDS: METHOCARBAMOL 500 MG TABLET PO PRN (22:20)
[2022-07-11] MEDS: ATORVASTATIN CA 40 MG TABLET (FP) PO SCH (22:20)
[2022-07-12] MEDS ORDERED: chlordiazePOXIDE HCL 10 MG CAPSULE PO ONE (05:00)
[2022-07-12] MEDS: hydrOXYzine PAMOATE 25 MG CAPSULE (FP) PO PRN (05:44)
[2022-07-12] MEDS: PRENATAL VITAMINS W/ FOLIC ACID TABLET (FP) PO SCH (09:30)
[2022-07-12] MEDS: amLODIPine BESYLATE 10 MG TABLET (FP) PO SCH (09:30)
[2022-07-12 09:46] VITALS: BP 109/65; PULSE 82; RESP 16; TEMP 97.3
[2022-07-12] MEDS ORDERED: CEPHALEXIN MONOHYDRATE 500 MG CAPSULE (UD) PO SCH (10:00)
== END 2022-07-12 11:59 | disposition other institution (70) | DRG 774 ==
LOC: YASAS 14:33 → Y3N 20:07
PROVIDERS: ADMIT Allergy & Immunology; ATTEND Family Medicine
PROC: HZ2ZZZZ Detoxification Services for Substance Abuse Treatment (ICD-10-PCS; principal; 2022-07-07)
DX: F10.230 Alcohol dependence with withdrawal, uncomplicated (principal); F14.20 Cocaine dependence, uncomplicated; F17.210 Nicotine dependence, cigarettes, uncomplicated; F32.A Depression, unspecified; E78.5 Hyperlipidemia, unspecified; F41.9 Anxiety disorder, unspecified; Z86.69 Personal history of other diseases of the nervous system and sense organs
CPT/HCPCS: 36415; 80053; 82962; 85027; 86780; C9803-CS; U0003; U0005

== ENCOUNTER 2023-04-03 16:36 | Inpatient (IN) | payer OTHER ==
[2023-04-03 17:42] VITALS: BMI 29.1
[2023-04-03] MEDS ORDERED: ONDANSETRON *ODT* 4 MG TABLET SL PRN (18:46)
[2023-04-03] MEDS ORDERED: NALOXONE HCL 0.4 MG/ML VIAL IM PRN (18:46)
[2023-04-03] MEDS ORDERED: IBUPROFEN 400 MG TABLET (FP) PO PRN (18:46)
[2023-04-03] MEDS ORDERED: IBUPROFEN 600 MG TABLET (FP) PO PRN (18:46)
[2023-04-03] MEDS ORDERED: ACETAMINOPHEN 325 MG TABLET (FP) PO PRN (18:46)
[2023-04-03] MEDS ORDERED: guaiFENesin 600 MG TABLET.ER (FP) PO PRN (18:46)
[2023-04-03] MEDS ORDERED: MAGNESIUM HYDROX 2400MG/30ML ORAL SUSPENSION 30 ML CUP PO PRN (18:46)
[2023-04-03] MEDS ORDERED: NALOXONE HCL (KLOXXADO) 8 MG SPRAY NS PRN (18:46)
[2023-04-03] MEDS ORDERED: POLYETHYLENE GLYCOL (HEALTHYLAX) 3350 17 GM PACKET PO PRN (18:46)
[2023-04-03] MEDS ORDERED: BISMUTH SUBSALICYLATE 524 MG/30 ML PO PRN (18:46)
[2023-04-03] MEDS ORDERED: BENZONATATE 200 MG CAPSULE PO PRN (18:46)
[2023-04-03] MEDS ORDERED: NICOTINE POLACRILEX 2 MG GUM BUC PRN (18:46)
[2023-04-03] MEDS ORDERED: BENZOCAINE/MENTHOL (CHLORASEPTIC ) LOZENGE MM PRN (18:46)
[2023-04-03] MEDS ORDERED: LOPERAMIDE HCL 2 MG CAPSULE PO PRN (18:46)
[2023-04-03] MEDS ORDERED: MAG HYDROX/AL HYDROX/SIMETH 30 ML UNIT-DOSE CUP PO PRN (18:46)
[2023-04-03] MEDS ORDERED: chlordiazePOXIDE HCL 25 MG CAPSULE PO PRN (18:50)
[2023-04-03] MEDS: THIAMINE HCL 100 MG TABLET (FP) PO SCH (22:32)
[2023-04-03] MEDS: chlordiazePOXIDE HCL 25 MG CAPSULE PO SCH (22:32)
[2023-04-03] MEDS: MELATONIN 5 MG TABLETS PO SCH (22:32)
[2023-04-04] MEDS: chlordiazePOXIDE HCL 25 MG CAPSULE PO SCH ×4 (05:45→22:43)
[2023-04-04 10:32] LABS: HEMATOCRIT 36.9 % (35.4-49); HEMOGLOBIN 12.4 GM/dL (11.7-16.9); MCH 33.7 pg (25.7-33.7); MCHC 33.7 g/dl (32.0-35.9); MEAN PLT VOLUME 8.4 fl (7.5-11.1); PLATELET COUNT 195 10^3/uL (134-434); RBC 3.69 M/mm3 (4.00-5.60); WHITE BLOOD COUNT 4.8 K/mm3 (4.0-10.0)
[2023-04-04 10:36] LABS: CHLORIDE 108 mmol/L (98-107); POTASSIUM 3.8 mmol/L (3.5-5.1); SODIUM 140 mmol/L (136-145)
[2023-04-04] MEDS: PRENATAL VITAMINS W/ FOLIC ACID TABLET (FP) PO SCH (10:41)
[2023-04-04] MEDS: amLODIPine BESYLATE 10 MG TABLET (FP) PO SCH (10:41)
[2023-04-04] MEDS: NICOTINE 14 MG/24 HOURS TOPICAL PATCH TD SCH (10:44)
[2023-04-04 10:46] LABS: CREATININE 0.8 mg/dL (0.55-1.3); SGOT/AST 68 U/L (15-37)
[2023-04-04 10:47] LABS: TOT PROT 6.5 g/dl (6.4-8.2)
[2023-04-04] MEDS: SERTRALINE HCL 50 MG TABLET (FP) PO SCH (11:08)
[2023-04-04 11:14] LABS: ALK PHOS 63 U/L (45-117); ANION GAP 8 mmol/L (4-13); BILIRUBIN,TOTAL 0.4 mg/dL (0.2-1); BLOOD UREA NITROGEN 14.9 mg/dL (7-18); CALCIUM 8.6 mg/dL (8.5-10.1); CO2 24 mmol/L (21-32); GLUCOSE,RANDOM 149 mg/dL (74-106); SGPT/ALT 175 U/L (13-61)
[2023-04-04] MEDS: MELATONIN 5 MG TABLETS PO SCH (22:42)
[2023-04-04] MEDS: THIAMINE HCL 100 MG TABLET (FP) PO SCH (22:42)
[2023-04-04] MEDS: OLANZapine 7.5 MG TABLET PO SCH (22:42)
[2023-04-05] MEDS: chlordiazePOXIDE HCL 25 MG CAPSULE PO SCH ×4 (05:27→22:23)
[2023-04-05] MEDS: PRENATAL VITAMINS W/ FOLIC ACID TABLET (FP) PO SCH (10:20)
[2023-04-05] MEDS: SERTRALINE HCL 50 MG TABLET (FP) PO SCH (10:21)
[2023-04-05] MEDS: NICOTINE 14 MG/24 HOURS TOPICAL PATCH TD SCH (10:21)
[2023-04-05] MEDS: amLODIPine BESYLATE 10 MG TABLET (FP) PO SCH (10:21)
[2023-04-05] MEDS: MELATONIN 5 MG TABLETS PO SCH (22:23)
[2023-04-05] MEDS: THIAMINE HCL 100 MG TABLET (FP) PO SCH (22:23)
[2023-04-05] MEDS: OLANZapine 7.5 MG TABLET PO SCH (22:23)
[2023-04-06] MEDS ORDERED: chlordiazePOXIDE HCL 10 MG CAPSULE PO PRN
[2023-04-06] MEDS: chlordiazePOXIDE HCL 10 MG CAPSULE PO SCH ×4 (05:52→22:17)
[2023-04-06] MEDS: hydrOXYzine PAMOATE 25 MG CAPSULE (FP) PO PRN ×2 (10:25→17:37)
[2023-04-06] MEDS: SERTRALINE HCL 50 MG TABLET (FP) PO SCH (10:25)
[2023-04-06] MEDS: amLODIPine BESYLATE 10 MG TABLET (FP) PO SCH (10:25)
[2023-04-06] MEDS: PRENATAL VITAMINS W/ FOLIC ACID TABLET (FP) PO SCH (10:26)
[2023-04-06] MEDS: NICOTINE 14 MG/24 HOURS TOPICAL PATCH TD SCH (10:28)
[2023-04-06 10:47] LABS: SGOT/AST 42 U/L (15-37)
[2023-04-06 10:48] LABS: SGPT/ALT 121 U/L (13-61)
[2023-04-06 11:06] LABS: HIV INTERPRETATION NEGATIVE (NEGATIVE)
[2023-04-06] MEDS: MELATONIN 5 MG TABLETS PO SCH (22:16)
[2023-04-06] MEDS: THIAMINE HCL 100 MG TABLET (FP) PO SCH (22:16)
[2023-04-06] MEDS: METHOCARBAMOL 500 MG TABLET PO PRN (22:18)
[2023-04-06] MEDS: OLANZapine 7.5 MG TABLET PO SCH (22:18)
[2023-04-07] MEDS: chlordiazePOXIDE HCL 10 MG CAPSULE PO SCH ×2 (05:16→17:17)
[2023-04-07 10:10] LABS: CHOLESTEROL 254 mg/dL (50-200)
[2023-04-07 10:12] LABS: LDL CHOLESTEROL (ONLY SJRH) 114 mg/dL (5-100)
[2023-04-07 10:13] LABS: HDL CHOLESTEROL 35 mg/dL (40-60)
[2023-04-07] MEDS: PRENATAL VITAMINS W/ FOLIC ACID TABLET (FP) PO SCH (10:14)
[2023-04-07] MEDS: NICOTINE 14 MG/24 HOURS TOPICAL PATCH TD SCH (10:14)
[2023-04-07] MEDS: SERTRALINE HCL 50 MG TABLET (FP) PO SCH (10:15)
[2023-04-07] MEDS: amLODIPine BESYLATE 10 MG TABLET (FP) PO SCH (10:15)
[2023-04-07] MEDS: hydrOXYzine PAMOATE 25 MG CAPSULE (FP) PO PRN ×2 (10:16→22:17)
[2023-04-07] MEDS ORDERED: ATORVASTATIN CA 40 MG TABLET (FP) PO SCH (22:00)
[2023-04-07] MEDS ORDERED: OLANZAPINE 10 MG, OLANZAPINE 5 MG PO ONE (22:00)
[2023-04-07] MEDS: THIAMINE HCL 100 MG TABLET (FP) PO SCH (22:17)
[2023-04-07] MEDS: MELATONIN 5 MG TABLETS PO SCH (22:17)
[2023-04-07] MEDS: METHOCARBAMOL 500 MG TABLET PO PRN (22:17)
[2023-04-07] MEDS: OLANZapine 7.5 MG TABLET PO SCH (22:18)
[2023-04-08] MEDS ORDERED: chlordiazePOXIDE HCL 10 MG CAPSULE PO ONE (05:00)
[2023-04-08] MEDS: hydrOXYzine PAMOATE 25 MG CAPSULE (FP) PO PRN (06:11)
[2023-04-08] MEDS: NICOTINE 14 MG/24 HOURS TOPICAL PATCH TD SCH (09:49)
[2023-04-08] MEDS: PRENATAL VITAMINS W/ FOLIC ACID TABLET (FP) PO SCH (09:49)
[2023-04-08] MEDS: SERTRALINE HCL 50 MG TABLET (FP) PO SCH (09:50)
[2023-04-08] MEDS: amLODIPine BESYLATE 10 MG TABLET (FP) PO SCH (09:50)
[2023-04-08 12:50] VITALS: BP 128/65; PULSE 73; RESP 18; TEMP 97.5
== END 2023-04-08 15:12 | disposition other institution (70) | DRG 774 ==
LOC: YASAS 16:36 → Y6N 18:50
PROVIDERS: ADMIT Allergy & Immunology; ATTEND Surgery
PROC: HZ2ZZZZ Detoxification Services for Substance Abuse Treatment (ICD-10-PCS; principal; 2023-04-03)
DX: F10.230 Alcohol dependence with withdrawal, uncomplicated (principal); F14.20 Cocaine dependence, uncomplicated; F12.20 Cannabis dependence, uncomplicated; F17.210 Nicotine dependence, cigarettes, uncomplicated; F25.1 Schizoaffective disorder, depressive type; E78.2 Mixed hyperlipidemia; I10 Essential (primary) hypertension; Z28.310 Unvaccinated for COVID-19; Z28.9 Immunization not carried out for unspecified reason
CPT/HCPCS: 36415; 80053; 80061; 80307; 83036; 84450; 84460; 85027; 86780; 87389; 87635; 93005; 93010

== ENCOUNTER 2023-04-08 15:15 | Inpatient (IN) | payer OTHER ==
[~2023-04-08 15:15] MED LIST: ACETAMINOPHEN 325 MG TABLET (FP) PO PRN; BENZOCAINE/MENTHOL (CHLORASEPTIC ) LOZENGE MM PRN; BENZONATATE 200 MG CAPSULE PO PRN; COLLOIDAL OATMEAL 1 BAR EACH TP PRN; IBUPROFEN 400 MG TABLET (FP) PO PRN; IBUPROFEN 600 MG TABLET (FP) PO PRN; LOPERAMIDE HCL 2 MG CAPSULE PO PRN; MAG HYDROX/AL HYDROX/SIMETH 30 ML UNIT-DOSE CUP PO PRN; MAGNESIUM HYDROX 2400MG/30ML ORAL SUSPENSION 30 ML CUP PO PRN; METHOCARBAMOL 500 MG TABLET PO PRN; NICOTINE 14 MG/24 HOURS TOPICAL PATCH TD PRN; NICOTINE POLACRILEX 2 MG GUM BUC PRN; POLYETHYLENE GLYCOL (HEALTHYLAX) 3350 17 GM PACKET PO PRN; guaiFENesin 600 MG TABLET.ER (FP) PO PRN
[2023-04-08] MEDS: ATORVASTATIN CA 40 MG TABLET (FP) PO SCH (21:08)
[2023-04-08] MEDS: MELATONIN 5 MG TABLETS PO SCH (21:09)
[2023-04-08] MEDS: THIAMINE HCL 100 MG TABLET (FP) PO SCH (21:09)
[2023-04-08] MEDS: OLANZapine 5 MG TABLET PO SCH (21:38)
[2023-04-09] MEDS: SERTRALINE HCL 50 MG TABLET (FP) PO SCH (10:21)
[2023-04-09] MEDS: PRENATAL VITAMINS W/ FOLIC ACID TABLET (FP) PO SCH (10:21)
[2023-04-09] MEDS: amLODIPine BESYLATE 10 MG TABLET (FP) PO SCH (10:21)
[2023-04-09] MEDS: hydrOXYzine PAMOATE 25 MG CAPSULE (FP) PO PRN (10:23)
[2023-04-09] MEDS: MELATONIN 5 MG TABLETS PO SCH (21:19)
[2023-04-09] MEDS: OLANZapine 5 MG TABLET PO SCH (21:20)
[2023-04-09] MEDS: ATORVASTATIN CA 40 MG TABLET (FP) PO SCH (21:20)
[2023-04-09] MEDS: THIAMINE HCL 100 MG TABLET (FP) PO SCH (21:20)
[2023-04-10] MEDS: hydrOXYzine PAMOATE 25 MG CAPSULE (FP) PO PRN (09:25)
[2023-04-10] MEDS: amLODIPine BESYLATE 10 MG TABLET (FP) PO SCH (09:25)
[2023-04-10] MEDS: SERTRALINE HCL 50 MG TABLET (FP) PO SCH (09:25)
[2023-04-10] MEDS: PRENATAL VITAMINS W/ FOLIC ACID TABLET (FP) PO SCH (09:25)
[2023-04-10] MEDS: THIAMINE HCL 100 MG TABLET (FP) PO SCH (21:00)
[2023-04-10] MEDS: ATORVASTATIN CA 40 MG TABLET (FP) PO SCH (21:01)
[2023-04-10] MEDS: OLANZapine 5 MG TABLET PO SCH (21:01)
[2023-04-10] MEDS: MELATONIN 5 MG TABLETS PO SCH (21:01)
[2023-04-11] MEDS: PRENATAL VITAMINS W/ FOLIC ACID TABLET (FP) PO SCH (09:13)
[2023-04-11] MEDS: hydrOXYzine PAMOATE 25 MG CAPSULE (FP) PO PRN (09:13)
[2023-04-11] MEDS: SERTRALINE HCL 50 MG TABLET (FP) PO SCH (09:13)
[2023-04-11] MEDS: amLODIPine BESYLATE 10 MG TABLET (FP) PO SCH (09:13)
[2023-04-11] MEDS: OLANZapine 5 MG TABLET PO SCH (21:25)
[2023-04-11] MEDS: THIAMINE HCL 100 MG TABLET (FP) PO SCH (21:25)
[2023-04-11] MEDS: MELATONIN 5 MG TABLETS PO SCH (21:25)
[2023-04-11] MEDS: ATORVASTATIN CA 40 MG TABLET (FP) PO SCH (21:25)
[2023-04-12] MEDS: PRENATAL VITAMINS W/ FOLIC ACID TABLET (FP) PO SCH (10:11)
[2023-04-12] MEDS: amLODIPine BESYLATE 10 MG TABLET (FP) PO SCH (10:11)
[2023-04-12] MEDS: SERTRALINE HCL 50 MG TABLET (FP) PO SCH (10:11)
[2023-04-12] MEDS: hydrOXYzine PAMOATE 25 MG CAPSULE (FP) PO PRN ×2 (10:12→21:15)
[2023-04-12] MEDS: MELATONIN 5 MG TABLETS PO SCH (21:14)
[2023-04-12] MEDS: THIAMINE HCL 100 MG TABLET (FP) PO SCH (21:14)
[2023-04-12] MEDS: ATORVASTATIN CA 40 MG TABLET (FP) PO SCH (21:14)
[2023-04-12] MEDS: OLANZapine 5 MG TABLET PO SCH (21:14)
[2023-04-13] MEDS: PRENATAL VITAMINS W/ FOLIC ACID TABLET (FP) PO SCH (10:23)
[2023-04-13] MEDS: amLODIPine BESYLATE 10 MG TABLET (FP) PO SCH (10:24)
[2023-04-13] MEDS: SERTRALINE HCL 50 MG TABLET (FP) PO SCH (10:24)
[2023-04-13] MEDS: hydrOXYzine PAMOATE 25 MG CAPSULE (FP) PO PRN ×2 (10:24→21:22)
[2023-04-13] MEDS: THIAMINE HCL 100 MG TABLET (FP) PO SCH (21:22)
[2023-04-13] MEDS: MELATONIN 5 MG TABLETS PO SCH (21:22)
[2023-04-13] MEDS: ATORVASTATIN CA 40 MG TABLET (FP) PO SCH (21:22)
[2023-04-13] MEDS: OLANZapine 5 MG TABLET PO SCH (21:22)
[2023-04-14] MEDS: PRENATAL VITAMINS W/ FOLIC ACID TABLET (FP) PO SCH (09:30)
[2023-04-14] MEDS: SERTRALINE HCL 50 MG TABLET (FP) PO SCH (09:31)
[2023-04-14] MEDS: hydrOXYzine PAMOATE 25 MG CAPSULE (FP) PO PRN ×2 (09:31→21:01)
[2023-04-14] MEDS: amLODIPine BESYLATE 10 MG TABLET (FP) PO SCH (09:31)
[2023-04-14] MEDS: MELATONIN 5 MG TABLETS PO SCH (21:01)
[2023-04-14] MEDS: THIAMINE HCL 100 MG TABLET (FP) PO SCH (21:01)
[2023-04-14] MEDS: OLANZapine 5 MG TABLET PO SCH (21:01)
[2023-04-14] MEDS: ATORVASTATIN CA 40 MG TABLET (FP) PO SCH (21:01)
[2023-04-15] MEDS: PRENATAL VITAMINS W/ FOLIC ACID TABLET (FP) PO SCH (09:28)
[2023-04-15] MEDS: SERTRALINE HCL 50 MG TABLET (FP) PO SCH (09:28)
[2023-04-15] MEDS: hydrOXYzine PAMOATE 25 MG CAPSULE (FP) PO PRN ×2 (09:29→21:10)
[2023-04-15] MEDS: amLODIPine BESYLATE 10 MG TABLET (FP) PO SCH (09:29)
[2023-04-15] MEDS: ATORVASTATIN CA 40 MG TABLET (FP) PO SCH (21:09)
[2023-04-15] MEDS: MELATONIN 5 MG TABLETS PO SCH (21:09)
[2023-04-15] MEDS: THIAMINE HCL 100 MG TABLET (FP) PO SCH (21:09)
[2023-04-15] MEDS: OLANZapine 5 MG TABLET PO SCH (21:09)
[2023-04-16] MEDS: SERTRALINE HCL 50 MG TABLET (FP) PO SCH (09:43)
[2023-04-16] MEDS: PRENATAL VITAMINS W/ FOLIC ACID TABLET (FP) PO SCH (09:43)
[2023-04-16] MEDS: hydrOXYzine PAMOATE 25 MG CAPSULE (FP) PO PRN ×2 (09:43→21:09)
[2023-04-16] MEDS: amLODIPine BESYLATE 10 MG TABLET (FP) PO SCH (09:45)
[2023-04-16] MEDS: ATORVASTATIN CA 40 MG TABLET (FP) PO SCH (21:09)
[2023-04-16] MEDS: MELATONIN 5 MG TABLETS PO SCH (21:09)
[2023-04-16] MEDS: THIAMINE HCL 100 MG TABLET (FP) PO SCH (21:09)
[2023-04-16] MEDS: OLANZapine 5 MG TABLET PO SCH (21:09)
[2023-04-17] MEDS: SERTRALINE HCL 50 MG TABLET (FP) PO SCH (10:22)
[2023-04-17] MEDS: amLODIPine BESYLATE 10 MG TABLET (FP) PO SCH (10:22)
[2023-04-17] MEDS: hydrOXYzine PAMOATE 25 MG CAPSULE (FP) PO PRN ×2 (10:22→21:02)
[2023-04-17] MEDS: PRENATAL VITAMINS W/ FOLIC ACID TABLET (FP) PO SCH (10:22)
[2023-04-17] MEDS: OLANZapine 5 MG TABLET PO SCH (21:01)
[2023-04-17] MEDS: THIAMINE HCL 100 MG TABLET (FP) PO SCH (21:01)
[2023-04-17] MEDS: MELATONIN 5 MG TABLETS PO SCH (21:01)
[2023-04-17] MEDS: ATORVASTATIN CA 40 MG TABLET (FP) PO SCH (21:01)
[2023-04-18] MEDS: PRENATAL VITAMINS W/ FOLIC ACID TABLET (FP) PO SCH (09:05)
[2023-04-18] MEDS: amLODIPine BESYLATE 10 MG TABLET (FP) PO SCH (09:06)
[2023-04-18] MEDS: hydrOXYzine PAMOATE 25 MG CAPSULE (FP) PO PRN ×2 (09:06→21:23)
[2023-04-18] MEDS: SERTRALINE HCL 50 MG TABLET (FP) PO SCH (09:06)
[2023-04-18] MEDS: THIAMINE HCL 100 MG TABLET (FP) PO SCH (21:23)
[2023-04-18] MEDS: OLANZapine 5 MG TABLET PO SCH (21:23)
[2023-04-18] MEDS: ATORVASTATIN CA 40 MG TABLET (FP) PO SCH (21:23)
[2023-04-18] MEDS: MELATONIN 5 MG TABLETS PO SCH (21:23)
[2023-04-19] MEDS: PRENATAL VITAMINS W/ FOLIC ACID TABLET (FP) PO SCH (09:20)
[2023-04-19] MEDS: amLODIPine BESYLATE 10 MG TABLET (FP) PO SCH (09:20)
[2023-04-19] MEDS: SERTRALINE HCL 50 MG TABLET (FP) PO SCH (09:20)
[2023-04-19] MEDS: THIAMINE HCL 100 MG TABLET (FP) PO SCH (21:03)
[2023-04-19] MEDS: OLANZapine 5 MG TABLET PO SCH (21:03)
[2023-04-19] MEDS: hydrOXYzine PAMOATE 25 MG CAPSULE (FP) PO PRN (21:03)
[2023-04-19] MEDS: ATORVASTATIN CA 40 MG TABLET (FP) PO SCH (21:03)
[2023-04-19] MEDS: MELATONIN 5 MG TABLETS PO SCH (21:03)
[2023-04-20] MEDS: PRENATAL VITAMINS W/ FOLIC ACID TABLET (FP) PO SCH (10:13)
[2023-04-20] MEDS: amLODIPine BESYLATE 10 MG TABLET (FP) PO SCH (10:13)
[2023-04-20] MEDS: SERTRALINE HCL 50 MG TABLET (FP) PO SCH (10:14)
[2023-04-20] MEDS: hydrOXYzine PAMOATE 25 MG CAPSULE (FP) PO PRN (21:36)
[2023-04-20] MEDS: OLANZapine 5 MG TABLET PO SCH (21:37)
[2023-04-20] MEDS: ATORVASTATIN CA 40 MG TABLET (FP) PO SCH (21:37)
[2023-04-20] MEDS: THIAMINE HCL 100 MG TABLET (FP) PO SCH (21:37)
[2023-04-20] MEDS: MELATONIN 5 MG TABLETS PO SCH (21:46)
[2023-04-21] MEDS: PRENATAL VITAMINS W/ FOLIC ACID TABLET (FP) PO SCH (10:01)
[2023-04-21] MEDS: SERTRALINE HCL 50 MG TABLET (FP) PO SCH (10:02)
[2023-04-21] MEDS: amLODIPine BESYLATE 10 MG TABLET (FP) PO SCH (10:02)
[2023-04-21] MEDS: MELATONIN 5 MG TABLETS PO SCH (21:24)
[2023-04-21] MEDS: THIAMINE HCL 100 MG TABLET (FP) PO SCH (21:24)
[2023-04-21] MEDS: ATORVASTATIN CA 40 MG TABLET (FP) PO SCH (21:24)
[2023-04-21] MEDS: OLANZapine 5 MG TABLET PO SCH (21:24)
[2023-04-21] MEDS: hydrOXYzine PAMOATE 25 MG CAPSULE (FP) PO PRN (21:25)
[2023-04-22 07:06] VITALS: RESP 18; TEMP 97.1
[2023-04-22 09:04] VITALS: BP 143/83; PULSE 85
[2023-04-22] MEDS: amLODIPine BESYLATE 10 MG TABLET (FP) PO SCH (09:28)
[2023-04-22] MEDS: PRENATAL VITAMINS W/ FOLIC ACID TABLET (FP) PO SCH (09:28)
[2023-04-22] MEDS: hydrOXYzine PAMOATE 25 MG CAPSULE (FP) PO PRN (09:29)
[2023-04-22] MEDS: SERTRALINE HCL 50 MG TABLET (FP) PO SCH (09:29)
== END 2023-04-22 10:18 | disposition home or self-care (01) | DRG 772 ==
LOC: YASAS 15:15 → Y3W 15:16
PROVIDERS: ADMIT Allergy & Immunology; ATTEND Psychiatry & Neurology Pain Medicine
PROC: HZ42ZZZ Group Counseling for Substance Abuse Treatment, Cognitive-Behavioral (ICD-10-PCS; principal; 2023-04-08)
DX: F10.20 Alcohol dependence, uncomplicated (principal); F17.210 Nicotine dependence, cigarettes, uncomplicated; F25.1 Schizoaffective disorder, depressive type; F41.9 Anxiety disorder, unspecified; F32.9 Major depressive disorder, single episode, unspecified; F42.9 Obsessive-compulsive disorder, unspecified; E78.5 Hyperlipidemia, unspecified
CPT/HCPCS: 36415; 86803